=== PATIENT | male | born 1975 | race Caucasian/White ===

== ENCOUNTER 2018-10-29 22:11 | Emergency (ER) | payer OTHER ==
[~2018-10-29] VITALS: Ht 177.8 cm; Wt 122.7 kg
[2018-10-29 22:18] VITALS: Ht 177.8 cm; Wt 122.7 kg
[2018-10-30] MEDS ORDERED: KEFLEX500 MG PO (01:15)
[2018-10-30] MEDS ORDERED: ULTRAM50 MG PO (01:16)
[2018-10-30 02:03] VITALS: BP 126/64
== END 2018-10-30 02:04 | disposition home or self-care (01) ==
LOC: D.ER 22:11
DX: S62.634A Displaced fracture of distal phalanx of right ring finger, initial encounter for closed fracture (principal); W23.0XXA Caught, crushed, jammed, or pinched between moving objects, initial encounter; Y93.89 Activity, other specified; Y92.89 Other specified places as the place of occurrence of the external cause; S61.214A Laceration without foreign body of right ring finger without damage to nail, initial encounter